=== PATIENT | female | born 1965 | race Caucasian/White ===

== ENCOUNTER 2022-01-11 12:46 | Emergency (ER) | payer OTHER, MEDICAID, SELFPAY ==
[2022-01-11 13:42] VITALS: BP 140/83; PULSE 92; RESP 16; TEMP 36.7; O2SAT 100; BMI 19.8
--- NOTE | 2022-01-11 13:45 | DI.RAD.S_ITS ---
PROCEDURE: XR HAND RT MIN 3V INDICATIONS: injury TECHNIQUE: 3 views of the hand(s) acquired. COMPARISON: None. FINDINGS: Bones: Acute fracture of the distal 5th metacarpal with mild volar angulation of the distal fragment. No extension of the fracture plane to the MCP joint identified. Soft tissues: No suspicious soft tissue calcifications. IMPRESSION: Acute mildly angulated 5th metacarpal fracture. Dictated by: Dimas Charles M.D. on 01/11/2022 at 14:05 Approved by: Dimas Charles M.D. on 01/11/2022 at 14:07
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
--- NOTE | 2022-01-11 16:22 | PC.NURSE ---
Seen and evaluated by provider from steven bed. [facility] Crew discharged patient from the lobby
== END 2022-01-11 16:26 | disposition home or self-care (01) ==
PROVIDERS: Emergency Provider Nurse Practitioner Critical Care Medicine
DX: S62.326A Displaced fracture of shaft of fifth metacarpal bone, right hand, initial encounter for closed fracture (principal)
CPT/HCPCS: 73130; 99283

== ENCOUNTER 2022-01-23 18:52 | Emergency (ER) | payer OTHER, MEDICAID, SELFPAY ==
[2022-01-23 19:18] VITALS: BP 136/74; PULSE 111; RESP 18; TEMP 37; O2SAT 100; BMI 19.8
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
[2022-01-23 20:46] VITALS: BP 145/76; PULSE 103; RESP 16; O2SAT 100
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
[2022-01-23] MEDS: HYDROCODONE/ACET 5/325 PREPACK 1 BOTTLE MISC (23:19)
[2022-01-23 23:20] VITALS: BP 136/76; PULSE 90; RESP 16; O2SAT 98
== END 2022-01-23 23:22 | disposition home or self-care (01) ==
PROVIDERS: Emergency Provider Emergency Medicine
DX: S00.83XA Contusion of other part of head, initial encounter (principal); S20.212A Contusion of left front wall of thorax, initial encounter; V19.9XXA Pedal cyclist (driver) (passenger) injured in unspecified traffic accident, initial encounter
CPT/HCPCS: 70450; 70486; 71101; 72125; 99281; 99284

== ENCOUNTER 2023-05-15 15:29 | Emergency (ER) | payer OTHER, MEDICAID, SELFPAY ==
[2023-05-15 15:38] VITALS: BP 144/85; PULSE 88; RESP 16; TEMP 36.9; O2SAT 100; BMI 18.8
--- NOTE | 2023-05-15 18:17 | ED_ITS ---
HPI - Dental/Oral <Marianne Singh PA-C - Last Filed: 05/15/23 19:19> General Chief complaint: Dental/Oral Stated complaint: tooth pain facial swelling Time Seen by Provider: 05/15/23 18:13 Source: patient Mode of arrival: Ambulatory History of Present Illness HPI Narrative: 57-year-old female with PMH of asthma presenting to ED with dental pain/infection in left upper molar with associated broken tooth. Initial onset of symptoms started end of March of last year with recent progression of foul taste in mouth and facial swelling. Due to this, patient was evaluated at urgent care facility yesterday given a shot of penicillin and sent home on p.o. penicillin and ibuprofen for pain. Patient reports facial swelling has significantly reduced since initiating antibiotic, however, she is presenting to the ED due to poor pain control. She is having difficulty tolerating solid p.o. due to pain. Denies fever, chills, shortness of breath, difficulty with secretions, inability to swallow, hoarseness, purulent discharge from site, preauricular or postauricular pain, neck pain. Teeth map: 2 1. Fractured tooth, swollen, erythematous, discolored. No purulent discharge. Related Data Home Medications Medication Instructions Recorded Confirmed mometasone-formoterol HFA 200 inhalation 05/15/23 mcg-5 mcg/actuation aerosol inhaler (Dulera) Previous Rx's Medication Instructions Recorded hydrocodone 5 mg-acetaminophen 325 1 tab PO Q8H PRN pain #14 tabs 05/15/23 mg tablet Allergies Allergy/AdvReac Type Severity Reaction Status Date / Time No Known Drug Allergies Allergy Verified 05/15/23 15:41 Review of Systems <Marianne Singh PA-C - Last Filed: 05/15/23 19:19> Review of Systems Narrative: All systems reviewed & are unremarkable except as noted in HPI. Patient History <Marianne Singh PA-C - Last Filed: 05/15/23 19:19> Social History Smoking Status: Never smoker Smoking Status: Never smoker alcohol intake frequency: other Substance Use Type: marijuana Exam <Marianne Singh PA-C - Last Filed: 05/15/23 19:19> Initial Vital Signs Initial Vital Signs: Vital Signs Temperature 98.4 F 05/15/23 15:38 Pulse Rate 88 05/15/23 15:38 Respiratory Rate 16 05/15/23 15:38 Blood Pressure 144/85 H 05/15/23 15:38 Pulse Oximetry 100 05/15/23 15:38 Oxygen Delivery Method Room Air 05/15/23 15:38 PHYSICAL EXAM: GEN: Cooperative, slight stature. Distressed secondary to pain. HEENMT: Head: ?Normocephalic, atraumatic Ears: ?Hearing grossly normal bilaterally. Eyes: ?Normal appearance. No periorbital edema. Nose: ?External nose normal. Nonedematous. Face: ?Left cheek swelling Mouth: ?Oral mucosae moist. Left upper molar dark, broken tooth with surrounding erythema, swelling and tenderness to palpation. No fluctuance of fluid noted of gingiva. Possible small abscess of tooth noted without discharge. No foul odor noted. Throat: ?Posterior oropharynx normal, clear. Nonerythematous, nonedematous. NECK: Normal visual inspection. No nuchal rigidity. No bilateral preauricular nor postauricular tenderness to palpation. No tenderness nor adenopathy of bilateral cervical chain. ABD: ?No tenderness to palpation all 4 quadrants, nondistended. LUNGS: ?Breathing nonlabored. No audible wheezes heard. CARD: RRR. Extremities non-edematous. NEURO: Alert and oriented x 3. Speech appropriate, fluent. No dysarthria. No uvular deviation. No focal deficits. Moving all extremities with appropriate strength. <Latia Luke DO - Last Filed: 05/18/23 07:41> Initial Vital Signs Initial Vital Signs: Vital Signs Temperature 98.4 F 05/15/23 15:38 Pulse Rate 88 05/15/23 15:38 Respiratory Rate 16 05/15/23 15:38 Blood Pressure 144/85 H 05/15/23 15:38 Pulse Oximetry 100 05/15/23 15:38 Oxygen Delivery Method Room Air 05/15/23 15:38 Course <Marianne Singh PA-C - Last Filed: 05/15/23 19:19> Vital Signs Vital signs: Vital Signs - 8 hr 05/15/23 15:38 Temperature 98.4 F Pulse Rate 88 Respiratory Rate 16 Blood Pressure 144/85 H Pulse Oximetry 100 Oxygen Delivery Method Room Air <Latia Luke DO - Last Filed: 05/18/23 07:41> Vital Signs Vital signs: Vital Signs - 8 hr 05/15/23 15:38 Temperature 98.4 F Pulse Rate 88 Respiratory Rate 16 Blood Pressure 144/85 H Pulse Oximetry 100 Oxygen Delivery Method Room Air MDM - Dental/Oral <Marianne Singh PA-C - Last Filed: 05/15/23 19:19> Differential Diagnosis Differential diagnosis: Likely gingival abscess, dental caries, dental abscess and fracture of tooth MDM Narrative Medical decision making narrative: 57-year-old female with PMH of asthma presenting to ED with dental pain/infection in left upper molar with associated broken tooth and facial swelling. Concern for differential diagnosis of gingival abscess versus dental abscess versus dental caries. Patient was evaluated at outside urgent care facility yesterday and given a shot of penicillin and sent home with p.o. penicillin. Since initiating antibiotic patient reports swelling of left cheek has exponentially reduced. Verified on picture patient took of herself yesterday, viewed by me. On exam, appreciable fracture of left upper molar with associated erythema and swelling. Possible small abscess on exam, unable to express fluid. No preauricular nor postauricular tenderness to palpation, no cervical chain tenderness to palpation. Exam findings consistent with diagnosis of dental caries with probable small abscess. DC PLAN: Patient discharged home with Ulysses 5/325 Q 8 as needed for pain control. Pain med precautions given. She was instructed to continue the p.o. amoxicillin prescribed at outside urgent care facility. Encouraged patient to continue with oral hydration and soft p.o. intake as tolerated. Gave patient strict instruction to make appointment with dentist immediately. Patient reports will make appointment at dental urgent care facility in [place] tomorrow. Exam findings reviewed with patient, plan of care discussed and ER precautions given. ?Discussed with patient if experience worsening signs, symptoms or concerning pathology, such as fever, chills, increased facial swelling, pre or postauricular tenderness and swelling, neck pain or other symptoms of concern to please return to the ED. Patient states understanding of this and is in agreement with plan. Medical records reviewed. Discharge Plan Departure Patient Disposition: Home Clinical Impression: Dental caries, Toothache Instructions: DI for Dental Pain Activity Restrictions/Additional Instructions: DISCHARGE INSTRUCTIONS: You were evaluated today in the Emergency Department for tooth pain with the finding of dental caries/tooth decay of left upper molar. ?You were prescribed Ulysses 5/325 which may be taken every 8 hours as needed for pain. Your prescription was sent to [facility] in [place]. Please continue the amoxicillin prescribed by other urgent care facility. ?Please follow-up with dentist immediately for further evaluation and treatment. ?If any concerning signs or symptoms, such as fever, chills, increased facial swelling, increased tenderness at site, increased spread of erythema, shortness of breath, difficulty swallowing please return to the ED. You have been prescribed a short course of narcotic medications. These are potentially dangerous and addictive medications that should be used carefully. While on these medications you cannot drive or operate heavy machinery. Additionally, you cannot sign legal documents or perform any duties such as this. 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 Please understand that we cannot provide further refills of narcotics or controlled substances through the ED and your pain management will need to be through your Primary Care Provider Thank you for allowing us to be involved in your care. Feel better soon! Prescriptions: New hydrocodone-acetaminophen 5-325 mg tablet 1 tab PO Q8H PRN (Reason: pain) Qty: 14 0RF No Action Dulera 200-5 mcg/actuation HFA aerosol inhaler INHALATION Referrals: Miscellaneous,Doctor, [Primary Care Provider] - Stand Alone Forms: Patient Portal/API ED Sign-out <Latia Luke DO - Last Filed: 05/18/23 07:41> Cosign ED Attending Jaciel Attestation: I was immediately available in the department for consultation.
[2023-05-15 18:48] VITALS: BP 149/77; PULSE 82; RESP 16; O2SAT 99
[2023-05-15 19:11] VITALS: PULSE 99; RESP 16; O2SAT 98
== END 2023-05-15 19:11 | disposition home or self-care (01) ==
PROVIDERS: Emergency Provider Physician Assistant Surgical
DX: K02.9 Dental caries, unspecified (principal); K08.89 Other specified disorders of teeth and supporting structures
CPT/HCPCS: 99281